=== PATIENT | male | born 1995 | race Caucasian/White ===

== ENCOUNTER 2023-01-31 18:08 | Emergency (ER) | payer OTHER, SELFPAY ==
[2023-01-31 18:13] VITALS: BP 136/87; PULSE 65; RESP 16; TEMP 36.8; O2SAT 98; BMI 28.5
--- NOTE | 2023-01-31 18:21 | ED_ITS ---
HPI - General Adult General Date Seen: 01/31/23 Chief complaint: Shoulder Injury/Pain Stated complaint: right shoulder dislocated Time Seen by Provider: 01/31/23 18:13 History of Present Illness HPI narrative: This is a 27-year-old generally healthy male who presents to the ER today with pain involving his right shoulder. He injured his shoulder at work about 10 or 15 minutes prior to arrival. He was trying to pull on something when he felt a pop in his right shoulder. Ever since then he is having pain right near the distal end of his clavicle on the top of the shoulder. It hurts when he tries to flex his arm forward to point and hurts when he tries to abduct his shoulder. He does not have any pain in the shaft of the collarbone, in the back in the scapula, or on the deltoid, or down into the humerus. No numbness or tingling in his arm. No injury to his left shoulder. He does not have any previous history of shoulder problems. He is otherwise generally healthy. No allergies. No regular medications. Related Data Previous Rx's Medication Instructions Recorded ibuprofen 600 mg tablet 600 mg PO Q8H PRN #14 tabs 01/31/23 Allergies Allergy/AdvReac Type Severity Reaction Status Date / Time No Known Drug Allergies Allergy Verified 01/31/23 18:16 PFSH PFS Social History Smoking Status: Former smoker Do you use any of these nicotine containing products: None Second hand tobacco smoke exposure: Yes How often do you have a drink containing alcohol: never How often do you have six or more drinks on one occasion: Never AUDIT-C Alcohol total score: 0 Non-prescribed substance use: denies use service: No Exam Narrative: Exam Narrative: Constitutional: Appears well-developed and well-nourished. Alert. Conversant. Non toxic. HENT: Head: Atraumatic. Nose: Nose normal. Mouth/Throat: Oral mucosa is clear and moist. no trismus. Pharynx normal. Tonsil s symmetric. No tonsillar enlargement, erythema, or exudate. Eyes: Conjunctivae normal. EOM normal. Pupils equal, round, and reactive to light. No scleral icterus. Neck: Normal range of motion. Neck supple. No tracheal deviation present. Cardiovascular: Normal rate, regular rhythm. No gallop. No friction rub. No murmur heard. Symmetric radial artery pulses Pulmonary/Chest: Effort normal. No stridor. No respiratory distress. No wheezes. No rales. No rhonchi . No tenderness. Musculoskeletal: No C, T spine tenderness. RUE: Normal inspection. No deformity, crepitus, bruising, ecchymosis, er ythema, abrasion. Patient is very tender over the distal end of the clavicle/AC joint. No tenderness over the deltoid and proximal humerus. Range of motion is limited by pain. He is able to flex to almost 90? but winces with pain. He is able to abduct his shoulder about 45?. Normal internal and external rotation as long as he keeps his his humerus abducted against his torso. No tenderness over the humerus, biceps, triceps, elbow, forearm, wrist, hand. Intact axillary, median, radial, ulnar nerve sensory function. Strong radial pulse. Normal range of motion in elbow and wrist. No other tenderness. No deformity LUE: Normal range of motion. No tenderness. No deformity RLE: Normal range of motion. No edema. No tenderness. No deformity LLE: Normal range of motion. No edema. No tenderness. No deformity Neurological: Alert and oriented to person, place, and time. Normal strength. CN II-VII intact. No sensory deficit. GCS eye subscore is 4. GCS verbal subscore is 5. GCS motor subscore is 6. Normal coordination Skin: Skin is warm and dry. No rash noted. No pallor. Normal capillary refill. Psychiatric: Normal mood. Normal affect. Const: Vital Signs, click to edit/add: Vital Signs - 24 hr 01/31/23 18:13 Temperature 98.3 F Pulse Rate [Pulse Oximeter] 65 Respiratory Rate 16 Blood Pressure [Ri ght Upper Arm] 136/87 Pulse Oximetry 98 Oxygen Delivery Me thod Room Air Course Vital Signs Vital signs: Initial Vital Signs Temperature 98.3 F 01/31/23 18:13 Temperature Source Temporal Artery Scan 01/31/23 18:13 Pulse Rate 65 01/31/23 18:13 Respiratory Rate 16 01/31/23 18:13 Blood Pressure 136/87 01/31/23 18:13 Blood Pressure Mean 103 01/31/23 18:13 Blood Pressure Position Supine 01/31/23 18:13 Pulse Oximetry 98 01/31/23 18:13 Oxygen Delivery Method Room Air 01/31/23 18:13 Vital Signs Temperature 98.3 F 01/31/23 18:13 Pulse Rate 65 01/31/23 18:13 Respiratory Rate 16 01/31/23 18:13 Blood Pressure 136/87 01/31/23 18:13 Pulse Oximetry 98 01/31/23 18:13 Oxygen Delivery Method Room Air 01/31/23 18:13 Temperature 98.3 F 01/31/23 18:13 Pulse Rate 65 01/31/23 18:13 Respiratory Rate 16 01/31/23 18:13 Blood Pressure 136/87 01/31/23 18:13 Pulse Oximetry 98 01/31/23 18:13 Oxygen Delivery Method Room Air 01/31/23 18:13 Medications Administered Medications: Generic Name Dose Route Start Last Admin Trade Name Padmini PRN Reason Stop Dose Admin Ibuprofen 600 mg 01/31/23 18:40 01/31/23 18:51 Ibuprofen 600 Mg Tablet PO 01/31/23 18:41 600 mg ONCE ONE Administration Medical Decision Making [facility] Narrative Medical decision making narrative: This is a pleasant 27-year-old previous healthy male presenting to the ER today with acute onset of right shoulder pain after he injured it while at work just prior to arrival this evening. He is having pain right at the dorsum of the s [place] in the area of the distal clavicle/AC joint. Fortunately x-rays are negative for any AC joint separation or clavicle fracture or glenohumeral joint injury. He is neurovascularly intact in the right arm. No associated neck pain to suggest cervical radiculopathy. He says he was pulling with his arm when he injured it. He has lot of pain with forward flexion and abduction. Concern is for possible internal derangement of the shoulder such as rotator cuff injury. Will place the patient into a sling. Ibuprofen for pain for now. Recommend close outpatient follow-up with orthopedics for repeat evaluation and, if necessary, MRI to evaluate his rotator cuff. The patient actually is traveling for work and normally lives in [place]. Therefore he the plan will be to give him a note for work it for today, sling for temporary relief. NSAIDs for temporary pain relief . he will follow up that with medical providers in [place] when he gets home. Questions answered. He is comfortable plan of care put precautions for return to the ER reviewed. Imaging Data xr shoulder: Attestation: I have reviewed the pertinent imaging results. My impression: No AC joint separation or glenohumeral joint dislocation. No fracture Radiologist's impression: Impression: No sign of acute injury. Discharge Plan Discharge Clinical Impression: Injury of right shoulder Patient Disposition: Home, Self-Care Condition: Stable Instructions: How to Use a Sling (ED), Shoulder Pain (ED) Additional Instructions: As we discussed, your x-rays look good. No broken bones or dislocations. We are concerned that you may have a injury to the cartilage or rotator cuff of your shoulder. Please wear the sling when you are up and around during the day. Be sure to take the sling off at night when her sleeping and at least once or twice a day to perform gentle [id number] exercises with her shoulder. This will help avoid stiffness and ?frozen shoulder. ?. If you are not completely improved within 3-4 days, please follow-up with your regular doctor or your [facility], or an orthopedist at home in [place]. Use ibuprofen or Tylenol if needed for pain relief. Remember, please come back to the ER right away if you have any problems, such as worsening pain, numbness down her arm, swelling of your arm, or any concerns. Prescriptions: New ibuprofen 600 mg tablet 600 mg PO Q8H PRNQty: 14 0RF Follow Up/Referrals: Provider,Not a Local [Primary Care Provider] - Stand Alone Forms: [email or web address] Info Instructions
--- NOTE | 2023-01-31 18:40 | CRLHL7_ITS ---
For Patients: As a result of the Cures Act, medical imaging exams and procedure reports are released immediately into your electronic medical record. You may view this report before your referring provider. If you have questions, please contact your health care provider. Indication: right shoulder, AC pain. Technique: Right shoulder, 3 views. Comparison: None. Findings: Bones: Alignment is normal. No fractures or bone lesions. Joint spaces: Unremarkable. Soft tissues: Unremarkable. Impression: No sign of acute injury. Dictated by Joy Lal MD @ 01/31/2023 7:58:08 PM (Electronically Signed)
[2023-01-31] MEDS: IBUPROFEN 600 MG TABLET PO (18:51)
== END 2023-01-31 20:34 | disposition home or self-care (01) ==
PROVIDERS: Emergency Provider Emergency Medicine
DX: S49.91XA Unspecified injury of right shoulder and upper arm, initial encounter (principal); X50.0XXA Overexertion from strenuous movement or load, initial encounter; Y99.0 Civilian activity done for income or pay
CPT/HCPCS: 73030; 99283; A9270